=== PATIENT | male | born 1985 | race African-American/Black ===

== ENCOUNTER 2018-02-17 17:38 | Emergency (ER) | payer SELFPAY ==
[~2018-02-17] VITALS: Ht 188 cm; Wt 125.0 kg
[~2018-02-17 17:38] MED LIST: ADVAIR 500/501 DISK IH; LEXAPRO10 MG PO; NOHOMEMEDS; SINGULAIR10 MG PO; VENTOLIN HFA18 GM IH
[2018-02-17 18:20] LABS: HEMATOCRIT 46.4 % (38.0-50.0); HEMOGLOBIN 15.3 G/DL (12.5-16.6); MCH 28.3 PG (29.0-34.0); MCV 85.9 FL (86-99); PLATELET COUNT 219 K/uL (156-360); RBC DIS.WIDTH-CV 13.2 % (11.8-14.6); RBC DIS.WIDTH-SD 40.4 % (39-53); WHITE BLOOD COUNT 5.8 K/uL (4.1-10.2)
[2018-02-17 18:29] LABS: CHLORIDE 103 mEq/L (99-109); POTASSIUM 3.9 mEq/L (3.7-5.4); SODIUM 139 mEq/L (136-147)
[2018-02-17 18:30] LABS: GLUCOSE 85 mg/dL (70-99)
[2018-02-17 18:34] LABS: CREATININE 0.9 mg/dL (0.6-1.3); GFR ESTIMATE (CALCULATED) > 59 mL/min/ (58.99-99999)
[2018-02-17 18:35] LABS: UREA NITROGEN (BUN) 14 mg/dL (9-23)
[2018-02-17] MEDS ORDERED: PROVENTIL,2.5 MG/3 M IH (19:50)
[2018-02-17] MEDS ORDERED: PREDNISONE20 MG PO (19:50)
[2018-02-17 20:17] VITALS: BP 128/80
== END 2018-02-17 20:18 | disposition home or self-care (01) ==
LOC: EME 17:38
PROVIDERS: Physician Assistant Medical
DX: J45.901 Unspecified asthma with (acute) exacerbation (principal); Z72.0 Tobacco use
CPT/HCPCS: 71046; 80048; 85027; 94644; 99281; 99285; J2930